=== PATIENT | male | born 1975 ===

== ENCOUNTER 2016-09-18 12:28 | Emergency (ER) | payer OTHER, MEDICAID ==
[2016-09-18 12:34] VITALS: RESP 16
[2016-09-18] MEDS ORDERED: Sodium Chloride 0.9% 1,000 ML IV ONE (14:24)
[2016-09-18] MEDS ORDERED: Sodium Chloride 0.9% 1,000 ML ONE (14:38)
[2016-09-18 14:50] LABS: BASO % 0.6 % (0.0-2.0); EOS % 0.2 % (0.0-4.0); HEMATOCRIT 43.3 % (35.0-51.0); LYMPH # 1.3 K/uL (1.0-4.3); MEAN CELL VOLUME 83.8 fL (80.0-94.0); MEAN CORPUSCULAR HEMOGLOBIN 28.2 pg (27.0-31.0); MEAN CORPUSCULAR HGB CONC 33.6 g/dL (33.0-37.0); MEAN PLATELET VOLUME 10.1 fL (7.2-11.7); MONO # 0.3 K/uL (0.0-0.8); MONO % 5.7 % (0.0-10.0); RED CELL DISTRIBUTION WIDTH 13.7 % (11.5-14.5); WHITE BLOOD COUNT 5.2 K/uL (4.8-10.8)
[2016-09-18 14:53] LABS: URINE BILIRUBIN NEGATIVE (NEGATIVE); URINE BLOOD NEGATIVE (NEGATIVE); URINE COLOR Colorless (YELLOW); URINE GLUCOSE (UA) NORMAL (Normal); URINE KETONE NEGATIVE (NEGATIVE); URINE LEUKOCYTE ESTERASE NEG Leu/uL (Negative); URINE PROTEIN NEGATIVE (NEGATIVE); URINE UROBILINOGEN NORMAL mg/dL (0.2-1.0)
[2016-09-18 14:56] LABS: CHLORIDE 98 mmol/L (98-107)
[2016-09-18 14:57] LABS: POTASSIUM 4.2 mmol/L (3.6-5.2); SODIUM 143 mmol/L (132-148)
[2016-09-18 14:59] LABS: ALB/GLOB RATIO 1.3 (1.0-2.1); ALKALINE PHOSPHATASE 77 U/L (38-126); ALT/SGPT 34 U/L (21-72); AST/SGOT 35 U/L (17-59); BILIRUBIN,TOTAL 0.4 mg/dL (0.2-1.3); BLOOD UREA NITROGEN 9 mg/dL (9-20); CARBON DIOXIDE 29 mmol/L (22-30); GFR AFRICAN-AMERICAN > 60; GLUCOSE,RANDOM 82 mg/dL (75-110)
[2016-09-18 15:00] LABS: CALCIUM 9.2 mg/dl (8.6-10.4)
[2016-09-18] MEDS ORDERED: Iohexol 240 (50 ml) PO STA (15:03)
[2016-09-18] MEDS ORDERED: Iohexol 240 (50 ml) ONE (15:14)
[2016-09-18] MEDS ORDERED: Iohexol 350mg/ml 100 ML ONE (16:06)
--- NOTE | 2016-09-18 16:19 | C.PDOC ---
History Of Present Illness Patient is a 41 year old male who presents to the ER with a complaint of nausea , vomiting, and diarrhea for the past three days after eating pizza. Patient states had similar symptoms that resolved after 2 days. Patient also notes having felt warm and having right lower quadrant pain. Patient currently can tolerate water and gatorade. Denies any chest pain, dizziness, fever, chills, or shortness of breath. Time Seen by Provider: 09/18/16 14:20 Chief Complaint (Nursing): Abdominal Pain History Per: Patient History/Exam Limitations: no limitations Onset/Duration Of Symptoms: Days (3 days) Current Symptoms Are (Timing): Still Present Context: Food (Pizza) Severity: Mild Location Of Pain/Discomfort: RLQ Associated Symptoms: Nausea, Vomiting, Diarrhea (Watery, non-bloody). denies: Fever, Chills Past Medical History Reviewed: Historical Data, Nursing Documentation, Vital Signs Vital Signs: Last Vital Signs Temp 98.1 F 09/18/16 12:32 Pulse 85 09/18/16 12:32 Resp 16 09/18/16 12:32 BP 135/81 09/18/16 12:32 Pulse Ox 97 09/18/16 18:01 Family History: States: Unknown Family Hx - Social History Hx Alcohol Use: No Hx Substance Use: No - Immunization History Hx Tetanus Toxoid Vaccination: No Hx Influenza Vaccination: No Hx Pneumococcal Vaccination: No Review Of Systems Constitutional: Negative for: Fever, Chills Cardiovascular: Negative for: Chest Pain, Palpitations Respiratory: Negative for: Shortness of Breath Gastrointestinal: Positive for: Nausea, Vomiting, Abdominal Pain (Right lower quadrant), Diarrhea (watery, non-bloody) Physical Exam - Physical Exam Appears: Well, Non-toxic Skin: Normal Color, Warm, Dry Head: Atraumatic, Normacephalic Eye(s): bilateral: Normal Inspection Oral Mucosa: Moist Chest: Symmetrical Cardiovascular: Rhythm Regular Respiratory: Normal Breath Sounds, No Rales, No Rhonchi, No Wheezing Gastrointestinal/Abdominal: Bowel Sounds (Normal), Soft, Tenderness (mild right lower quadrant), No Distention, No Guarding, No Rebound Neurological/Psych: Oriented x3, Normal Speech, Normal Cognition ED Course And Treatment - Laboratory Results Result Diagrams: 09/18/16 14:37 09/18/16 14:37 O2 Sat by Pulse Oximetry: 97 (Room air) Pulse Ox Interpretation: Normal - CT Scan/US CT Abdomen w/contrast Other Rad Studies (CT/US): Read By Radiologist, Radiology Report Reviewed CT/US Interpretation: FINDINGS: LOWER THORAX: No infiltrate. 6 mm nodule right lower lobe (series 3, image 11). Followup noncontrast chest CT examination 6-12 months. 2 mm nodule left lower lobe (series 3, image 14. LIVER : Normal size and contour. 7 mm nonspecific low attenuation lesion in anterior right lobe. Multiple low-attenuation lesions, 3 mm. Nonspecific. No biliary dilatation. GALLBLADDER AND BILE DUCTS: No calcified gallstones. Trace pericholecystic fluid, nonspecific. PANCREAS: Unremarkable. No gross lesion or ductal dilatation. SPLEEN: Unremarkable. ADRENALS: Unremarkable. No mass. KIDNEYS AND URETERS: Unremarkable. No hydronephrosis. No solid mass. VASCULATURE: Unremarkable. No aortic aneurysm. BOWEL: Sigmoid diverticulosis. No evidence of diverticulitis. No bowel obstruction. APPENDIX : Not identified. No secondary findings to suggest acute appendicitis. PERITONEUM: Unremarkable. No free fluid. No free air. LYMPH NODES: Unremarkable. No enlarged lymph nodes. BLADDER: Unremarkable. REPRODUCTIVE: Normal prostate. BONES: No acute fracture. OTHER FINDINGS: None. IMPRESSION : No acute abnormality. Trace pericholecystic fluid, nonspecific. If clinical symptoms warrant, consider evaluation with abdominal ultrasound for cholecystitis. Diverticulosis without evidence of diverticulitis. Additional minor findings as above. Progress Note: Abdominal CT with PO/IV contrast and labs ordered. Omnipaque PO, Pepcid IVP, IV fluids, and Zofran IVP administered. Medical Decision Making Medical Decision Making: pt resting comfortably. no signs of appendicitis on ct scan. no vomiting in ed. I explapined the incidental findings of lung nodules to patient and need for follow up. Abdomen soft, nd,. nt on exam, Disposition Counseled Patient/Family Regarding: Studies Performed, Diagnosis, Need For Followup, Rx Given - Disposition Referrals: [facility] [Outside] Disposition: HOME/ ROUTINE Disposition Time: 18:04 Condition: STABLE Additional Instructions: Please take medications as prescribed. Follow up in clinic or with your doctor in 1-2 days. Drink increased fluids. BRAT diet- banana, rice, apple sauce and tea. Bring copy of ct scan to your doctor so they can arrange for repeat chest ct at appropriate time for nodules found in lungs. Return to ER for any worse pain, both nausea and vomiting. or any other concerns. Prescriptions: Famotidine [Pepcid] 20 mg PO DAILY #14 tab Instructions: Gastroenteritis (ED) Forms: Gen Discharge Inst Mauritian, Work Excuse - Clinical Impression Clinical Impression: Gastroenteritis - Scribe Statement The provider has reviewed the documentation as recorded by the Scribe Hans Chery All medical record entries made by the Kmiibnoelle were at my direction and personally dictated by me. I have reviewed the chart and agree that the record accurately reflects my personal performance of the history, physical exam, medical decision making, and the department course for this patient. I have also personally directed, reviewed, and agree with the discharge instructions and disposition.
--- NOTE | 2016-09-18 17:36 | CT ---
PROCEDURE: CT Abdomen and Pelvis with contrast HISTORY: abd pain COMPARISON: None. TECHNIQUE: Contrast dose: 100 mL Omnipaque 350 Radiation dose: Total exam DLP = 312.44 mGy-cm. FINDINGS: LOWER THORAX: No infiltrate. 6 mm nodule right lower lobe (series 3, image 11). Followup noncontrast chest CT examination 6-12 months. 2 mm nodule left lower lobe (series 3, image 14. LIVER: Normal size and contour. 7 mm nonspecific low attenuation lesion in anterior right lobe. Multiple low-attenuation lesions, 3 mm. Nonspecific. No biliary dilatation. GALLBLADDER AND BILE DUCTS: No calcified gallstones. Trace pericholecystic fluid, nonspecific. PANCREAS: Unremarkable. No gross lesion or ductal dilatation. SPLEEN: Unremarkable. ADRENALS: Unremarkable. No mass. KIDNEYS AND URETERS: Unremarkable. No hydronephrosis. No solid mass. VASCULATURE: Unremarkable. No aortic aneurysm. BOWEL: Sigmoid diverticulosis. No evidence of diverticulitis. No bowel obstruction. APPENDIX: Not identified. No secondary findings to suggest acute appendicitis. PERITONEUM: Unremarkable. No free fluid. No free air. LYMPH NODES: Unremarkable. No enlarged lymph nodes. BLADDER: Unremarkable. REPRODUCTIVE: Normal prostate BONES: No acute fracture. OTHER FINDINGS: None. IMPRESSION: No acute abnormality. Trace pericholecystic fluid, nonspecific. If clinical symptoms warrant, consider evaluation with abdominal ultrasound for cholecystitis. Diverticulosis without evidence of diverticulitis. Additional minor findings as above.
[2016-09-18 18:27] VITALS: BP 113/76; PULSE 65; TEMP 98.4
[2016-09-25 12:50] VITALS: O2SAT 97
== END 2016-09-18 18:27 | disposition home or self-care (01) ==
LOC: C.ER 12:28
DX: K52.9 Noninfective gastroenteritis and colitis, unspecified (principal)
CPT/HCPCS: 74177; 80053; 81001; 83690; 85025; 96361; 96374; 96375; 99285; J2405; J7040; Q9966; Q9967